=== PATIENT | female | born 1995 | race Caucasian/White ===

== ENCOUNTER 2017-09-13 16:55 | Emergency (ER) | payer OTHER ==
[~2017-09-13] VITALS: Ht 157.5 cm; Wt 72.7 kg
[~2017-09-13 16:55] MED LIST: BIO-TN500 MCG PO; CELEXA10 MG PO; CIPRO 500MG TA500 MG PO; DEPO-PROVER150 MG/M1 IM; EC NAPROSYN500 MG PO; EPA1000 MG PO; FLEXERIL5 MG PO; FLOMAX 0.40.4 MG/CAP PO; MOTRIN 600600 MG/TAB PO; MULTI VITAMINS1 TAB; NO HOME MEDICATIONS; NORCO 325 MG-51 TAB PO; NORCO 325 MG-7.1 TAB PO; PERCOCET 325 MG1 TA2 PO; PROMETHAZINE12.5 M5 PO; REGLAN 10MG10 MG/TAB PO; ZOFRAN 4MG T4 MG/TAB PO; ZOFRAN ODT8 MG PO
[2017-09-13 16:58] VITALS: TEMP 98.1
[2017-09-13 17:24] LABS: COLLECTION METHOD CLEAN CATCH
[2017-09-13 17:30] LABS: MUCOUS Present /lpf; PH 7 (5-8); URINE APPEARANCE Clear; URINE BACTERIA None Seen /hpf; URINE BILIRUBIN Negative (NEGATIVE); URINE BLOOD Negative (NEGATIVE); URINE COLOR Yellow; URINE GLUCOSE Negative (NEGATIVE); URINE KETONE Negative (NEGATIVE); URINE LEUKOCYTE ESTERASE Negative (NEGATIVE); URINE PROTEIN(semi-quant) Negative (NEGATIVE); URINE RBC 0-2 /hpf; URINE UROBILINOGEN Negative (NEGATIVE); URINE WBC 0-2 /hpf
[2017-09-13 17:45] VITALS: BP 121/75; PULSE 85
== END 2017-09-13 17:45 | disposition home or self-care (01) ==
LOC: COL.ER 16:55
PROVIDERS: Physician Assistant
DX: O26.891 Other specified pregnancy related conditions, first trimester (principal); N89.8 Other specified noninflammatory disorders of vagina; R10.2 Pelvic and perineal pain; Z3A.01 Less than 8 weeks gestation of pregnancy; Z87.442 Personal history of urinary calculi

== ENCOUNTER 2017-11-29 19:14 | Emergency (ER) | payer OTHER ==
[~2017-11-29] VITALS: Ht 157.5 cm; Wt 76.4 kg
[2017-11-29 19:29] VITALS: BP 105/64; PULSE 91; TEMP 98.2
[2017-11-29] MEDS ORDERED: PRENATAL MVI (19:31)
[2017-11-29] MEDS ORDERED: PRILOTC (19:32)
[2017-11-29 20:56] LABS: COLLECTION METHOD CLEAN CATCH
[2017-11-29 21:02] LABS: AMORPHOUS CRYSTAL Present /uL; PH 7 (5-8); URINE APPEARANCE Hazy; URINE BACTERIA Rare /hpf; URINE BILIRUBIN Negative (NEGATIVE); URINE BLOOD Negative (NEGATIVE); URINE COLOR Straw; URINE GLUCOSE Negative (NEGATIVE); URINE KETONE Negative (NEGATIVE); URINE LEUKOCYTE ESTERASE Trace (NEGATIVE); URINE NITRATE Negative (NEGATIVE); URINE PROTEIN(semi-quant) Negative (NEGATIVE); URINE RBC 0-2 /hpf; URINE UROBILINOGEN Negative (NEGATIVE)
[2017-11-29] MEDS ORDERED: MACROBID 1100 MG/CAP PO (21:09)
== END 2017-11-29 21:51 | disposition home or self-care (01) ==
LOC: COL.ER 19:14
PROVIDERS: Physician Assistant
DX: O9A.212 Injury, poisoning and certain other consequences of external causes complicating pregnancy, second trimester (principal); S39.012A Strain of muscle, fascia and tendon of lower back, initial encounter; Z3A.16 16 weeks gestation of pregnancy; Y04.0XXA Assault by unarmed brawl or fight, initial encounter; Y04.2XXA Assault by strike against or bumped into by another person, initial encounter

== ENCOUNTER → 2018-03-05 | Outpatient (CLI) | payer OTHER ==
[~2018-03-05] MED LIST changes: +MACROBID 1100 MG/CAP PO; +PRENATAL MVI; +PRILOTC
== END ==
LOC: SUN.DIA 13:20
DX: O24.419 Gestational diabetes mellitus in pregnancy, unspecified control (principal); Z3A.31 31 weeks gestation of pregnancy; Z71.3 Dietary counseling and surveillance
CPT/HCPCS: G0108

== ENCOUNTER → 2018-03-19 | Outpatient (CLI) | payer OTHER | LOC: SUN.DIA 10:09 | DX: O24.419 Gestational diabetes mellitus in pregnancy, unspecified control (principal); Z3A.33 33 weeks gestation of pregnancy; Z71.3 Dietary counseling and surveillance | CPT/HCPCS: G0108 ==

== ENCOUNTER → 2018-03-29 | Outpatient (CLI) | payer OTHER | LOC: SUN.DIA 12:59 | DX: O24.419 Gestational diabetes mellitus in pregnancy, unspecified control (principal); Z3A.34 34 weeks gestation of pregnancy; Z71.3 Dietary counseling and surveillance | CPT/HCPCS: G0108 ==

== ENCOUNTER → 2018-04-17 | Outpatient (CLI) | payer OTHER | LOC: SUN.DIA 14:31 | DX: O24.419 Gestational diabetes mellitus in pregnancy, unspecified control (principal); Z3A.37 37 weeks gestation of pregnancy; Z71.3 Dietary counseling and surveillance | CPT/HCPCS: G0108 ==

== ENCOUNTER 2018-05-03 09:32 | Inpatient (IN) | payer OTHER ==
[~2018-05-03] VITALS: Ht 157.5 cm; Wt 85.9 kg
[2018-05-05] VITALS (9 sets, daily range): BP systolic 101–115; BP diastolic 54–67; PULSE 73–99; TEMP 98.4–98.5
[2018-05-05 20:47] LABS: BASO % 0.2 % (0.0-2.0); EOS % 0.2 % (0-4.0); GRAN # 7.8 (1.4-6.5); LYMPH # 2.4 (1.2-3.4); MEAN CELL VOLUME 86 fl (80.0-100.0); MEAN CORPUSCULAR HEMOGLOBIN 28 pg (27.0-31.0); MEAN CORPUSCULAR HGB CONC 32 g/dl (33.0-37.0); MEAN PLATELET VOLUME 10.7 fl (7.4-10.4); MONO # 0.7 (0.1-0.6); PLATELET COUNT 235 K/mm3 (130-400); RED BLOOD COUNT 3.99 M/mm3 (4.10-5.30); REDCELL DISTRIBUTION WIDTH-CV 14.2 % (11.5-14.5)
[2018-05-05 20:50] LABS: HEMATOCRIT 34.2 % (37.0-47.0)
[2018-05-06] VITALS (71 sets, daily range): BP systolic 90–127; BP diastolic 43–81; PULSE 63–102; TEMP 97.9–98.6
[2018-05-06] MEDS ORDERED: PERCOCET 325 MG1 TA2 PO (17:47)
[2018-05-06] MEDS ORDERED: MOTRIN 800800 MG/TAB PO (17:47)
[2018-05-07 03:30] VITALS: BP 106/53; PULSE 76; TEMP 98.4
[2018-05-07 06:45] VITALS: BP 98/54; PULSE 77; TEMP 98.9
[2018-05-07 07:02] LABS: HEMATOCRIT 29.2 % (37.0-47.0); HEMOGLOBIN 9.1 g/dl (12.5-16.0)
[2018-05-07 12:30] VITALS: BP 99/44; PULSE 76; TEMP 97.8
[2018-05-07 19:15] VITALS: BP 97/54; PULSE 78; TEMP 97.9
[2018-05-08 07:34] VITALS: BP 97/55; PULSE 75; TEMP 97.5
[2018-05-08 16:37] VITALS: BP 96/42; PULSE 76; TEMP 97.8
[2018-05-08 21:00] VITALS: BP 112/53; PULSE 74; TEMP 98.9
[2018-05-09 06:40] VITALS: BP 102/55; PULSE 72; TEMP 97.8
== END 2018-05-09 13:20 | disposition home or self-care (01) | DRG 766 ==
LOC: LDR 09:32 → OB 05-05 19:03 → LDR 05-05 19:04 → OB 05-06 20:30
PROVIDERS: Obstetrics & Gynecology
PROC: 3E0P7VZ Introduction of Hormone into Female Reproductive, Via Natural or Artificial Opening (ICD-10-PCS; 2018-05-05)
PROC: 3E033VJ Introduction of Other Hormone into Peripheral Vein, Percutaneous Approach (ICD-10-PCS; 2018-05-05)
PROC: 10D00Z1 Extraction of Products of Conception, Low, Open Approach (ICD-10-PCS; principal; 2018-05-06)
DX: O76 Abnormality in fetal heart rate and rhythm complicating labor and delivery (principal); O24.420 Gestational diabetes mellitus in childbirth, diet controlled; Z3A.39 39 weeks gestation of pregnancy; Z37.0 Single live birth; O99.02 Anemia complicating childbirth
CPT/HCPCS: J0690; J1885; J2175; J2370; J2400; J2405; J2590; J2795; J3010; J7120

== ENCOUNTER 2018-07-17 11:26 | Emergency (ER) | payer OTHER ==
[~2018-07-17] VITALS: Ht 157.5 cm; Wt 77.3 kg
[~2018-07-17 11:26] MED LIST changes: +MOTRIN 800800 MG/TAB PO
[2018-07-17 11:31] VITALS: BP 138/81; TEMP 98.5
[2018-07-17 12:15] LABS: BASO % 0.3 % (0.0-2.0); EOS % 0.4 % (0-4.0); GRAN # 6.1 (1.4-6.5); GRAN % 68.3 % (42.2-75.2); HEMATOCRIT 38.6 % (37.0-47.0); HEMOGLOBIN 12.5 g/dl (12.5-16.0); LYMPH # 2.1 (1.2-3.4); LYMPH % 23.6 % (20.0-51.0); MEAN CELL VOLUME 82 fl (80.0-100.0); MEAN CORPUSCULAR HEMOGLOBIN 27 pg (27.0-31.0); MEAN CORPUSCULAR HGB CONC 32 g/dl (33.0-37.0); MEAN PLATELET VOLUME 9.9 fl (7.4-10.4); MONO # 0.6 (0.1-0.6); PLATELET COUNT 286 K/mm3 (130-400); REDCELL DISTRIBUTION WIDTH-CV 13.1 % (11.5-14.5)
[2018-07-17 12:30] LABS: ALBUMIN 4.4 gm/dL (3.5-5.0); BILIRUBIN,TOTAL 0.5 mg/dL (0.0-1.0); C-REACTIVE PROTEIN 0.9 mg/dL (0.0-0.9); CALCIUM 9.1 mg/dL (8.4-10.2); CREATININE, serum 0.86 mg/dL (0.52-1.25); TOTAL PROTEIN 7.7 gm/dL (6.4-8.2)
[2018-07-17 12:38] LABS: COLLECTION METHOD CATHETER
[2018-07-17 12:53] LABS: MUCOUS Present /lpf; PH 5 (5-8); SQUAMOUS EPITHELIAL 0-2 /hpf; URINE APPEARANCE Clear; URINE BACTERIA None Seen /hpf; URINE BILIRUBIN Negative (NEGATIVE); URINE BLOOD 3+ (NEGATIVE); URINE COLOR Yellow; URINE GLUCOSE Negative (NEGATIVE); URINE KETONE Negative (NEGATIVE); URINE LEUKOCYTE ESTERASE Negative (NEGATIVE); URINE NITRATE Negative (NEGATIVE); URINE PROTEIN(semi-quant) 1+ (NEGATIVE); URINE RBC >50 /hpf; URINE UROBILINOGEN Negative (NEGATIVE)
[2018-07-17] MEDS ORDERED: ZOFRAN ODT4 MG PO (13:42)
[2018-07-17] MEDS ORDERED: NORCO 325 MG-51 TAB PO (13:42)
[2018-07-17] MEDS ORDERED: IBU800 M1 PO (13:42)
[2018-07-17 14:05] VITALS: PULSE 70
== END 2018-07-17 14:02 | disposition home or self-care (01) ==
LOC: COL.ER 11:26
PROVIDERS: Physician Assistant
DX: R10.31 Right lower quadrant pain (principal); Z87.442 Personal history of urinary calculi
CPT/HCPCS: J1170; J1885; J2405; J7030

== ENCOUNTER → 2019-04-21 | Outpatient (CLI) | payer OTHER ==
[~2019-04-21] MED LIST changes: +IBU800 M1 PO; +ZOFRAN ODT4 MG PO
== END ==
LOC: COL.RAD 10:10
DX: S73.191A Other sprain of right hip, initial encounter (principal)
CPT/HCPCS: A9585; Q9967

== ENCOUNTER → 2019-10-17 | Outpatient (CLI) | payer OTHER | LOC: COL.RAD 14:00 | DX: M25.551 Pain in right hip (principal) | CPT/HCPCS: J3301; Q9967 ==

== ENCOUNTER 2021-05-01 21:08 | Emergency (ER) | payer OTHER ==
[~2021-05-01] VITALS: Ht 157.5 cm; Wt 72.7 kg
[2021-05-01 21:12] VITALS: TEMP 97.2
[2021-05-01] MEDS ORDERED: CEPHALEXIN500 M1 PO (21:34)
[2021-05-01 21:44] VITALS: BP 112/70; PULSE 67
[2021-09-15] MEDS ORDERED: ULTRAM 50MG TAB50 MG PO (08:45)
== END 2021-05-01 21:44 | disposition home or self-care (01) ==
LOC: COL.ER 21:08
DX: I88.9 Nonspecific lymphadenitis, unspecified (principal)
CPT/HCPCS: J0696; J1100

== ENCOUNTER 2021-09-11 02:21 | Inpatient (IN) | payer OTHER ==
[2021-09-11] VITALS (11 sets, daily range): BP systolic 92–107; BP diastolic 56–68; PULSE 91–116; TEMP 97.8–99.8
[~2021-09-11] VITALS: Ht 157.5 cm; Wt 75.6 kg
[~2021-09-11 02:21] MED LIST changes: +CEPHALEXIN500 M1 PO
[2021-09-11 03:02] LABS: COLLECTION METHOD CLEAN CATCH
[2021-09-11 03:03] LABS: HEMOGLOBIN 11.5 g/dl (12.5-16.0); MEAN CELL VOLUME 84 fl (80.0-100.0); MEAN CORPUSCULAR HEMOGLOBIN 27 pg (27.0-31.0); MEAN CORPUSCULAR HGB CONC 32 g/dl (33.0-37.0); MEAN PLATELET VOLUME 9.9 fl (7.4-10.4); PLATELET COUNT 229 K/mm3 (130-400); RED BLOOD COUNT 4.22 M/mm3 (4.10-5.30); REDCELL DISTRIBUTION WIDTH-CV 13.4 % (11.5-14.5)
[2021-09-11 03:11] LABS: PH 7 (5-8); URINE APPEARANCE Cloudy; URINE BACTERIA Many /hpf; URINE BILIRUBIN Negative (NEGATIVE); URINE BLOOD 2+ (NEGATIVE); URINE COLOR Yellow; URINE GLUCOSE Negative (NEGATIVE); URINE KETONE 1+ (NEGATIVE); URINE LEUKOCYTE ESTERASE 3+ (NEGATIVE); URINE NITRATE Negative (NEGATIVE); URINE PROTEIN(semi-quant) 2+ (NEGATIVE); URINE RBC >50 /hpf; URINE UROBILINOGEN >=4.0 mg/dL (NEGATIVE)
[2021-09-11 03:13] LABS: HEMATOCRIT 35.6 % (37.0-47.0)
[2021-09-11 03:21] LABS: ALBUMIN 3.5 gm/dL (3.5-5.0); BILIRUBIN,TOTAL 0.9 mg/dL (0.2-1.2); CALCIUM 9.5 mg/dL (8.4-10.2); CREATININE, serum 0.97 mg/dL (0.57-1.11); POTASSIUM 3.6 mmol/L (3.5-4.5); TOTAL PROTEIN 7.7 gm/dL (6.2-8.1)
[2021-09-11 03:34] LABS: BAND 3 % (0-10); LYMPHOCYTE 3 % (20.0-51.0); NEUTROPHILS 89 % (42.0-75.2); PLATELET ESTIMATE NORMAL (NORMAL)
--- NOTE | 2021-09-11 06:13 | NUR ---
Patient admitted to room 351 from ER at 05:25 am. Patient alert and oriented. Patient reports pain 4/10 to her left lower abd area. Patient states she just received pain med from ER and feeling a little better right now and denies need for pain med. Patient denies N/V. Patient reports having headache for about 3 days still having some headache. Patient denies chest pain or SOB. IVF infusing per MAR. All scheduled meds given per MAR. Oriented patient to the room. Admission paperwork completed. Per patient, she doesn't take any medications at home. Call light in reach. Will continue to monitor.
--- NOTE | 2021-09-11 09:27 | NUR ---
pt c/o pain 04/07, educated on taking pain medication before pain gets too high to keep pain manageable. pt requested morphine for more immediate relief, tylenol given as well for better pain management over time. pt pleasant, aox4, wears glasses, IV dettached for shower.
--- NOTE | 2021-09-11 10:22 | NUR ---
ASSESSMENT COMPLETE. PT COOPERATIVE WITH CARES. PT SHOWERED INDEPENDENTLY. DR. BAL CAME IN TO SPEAK WITH PT ABOUT HER PLAN OF CARE. DR. BAL CONSULTED DR. LANDEROS FOR SURGERY. PT STATED SHE HAD SOME FLANK PAIN. PAIN MEDICATION GIVEN. PT DENIES PALPITATIONS OR DIZZINESS. PT STATED SHE HAS NO OTHER NEEDS AT THIS TIME AND THAT SHE WANTED TO GO BACK TO SLEEP. PT RESTING IN BED. CALL LIGHT WITHIN REACH.
[2021-09-11] MEDS ORDERED: IMITREX50 MG PO (10:55)
--- NOTE | 2021-09-11 10:59 | NUR ---
PT C/O MIGRAINE, REPORTS THAT BENADRYL AND "SOME OTHER MED" HELPED LAST NIGHT. DR. BAL CALLED AND WILL REORDER MIGRAINE COCKTAIL. CONSENT OBTAINED FOR CYSTOSCOPY LATER TODAY, EDUCATED ON NEED TO STRAIN URINE, HAT PLACED IN TOILET AND STRAINER IN BATHROOM FOR USE.
--- NOTE | 2021-09-11 11:48 | NUR ---
CALLED DR. BAL ABOUT M[facility]RAINE MEDICATION, [facility]
--- NOTE | 2021-09-11 13:04 | NUR ---
Sw met with the pt who stated her preference to return home once medically stable. The pt lives at home with child (son) and is independent on all ADLS and does not use any DME. The pt is in the [employer] and does not use [employer]. Her PCP is Dr. Stevens at [facility] and gets her medications from [facility]. Her NK is her mother, Steven [phone]. Pt was not interested in [facility] at this time. No other needs stated at this time. Sw to await further recommendations and follow up as needed. D/c: home
--- NOTE | 2021-09-11 15:20 | NUR ---
PT TO OR ACCOMPANIED BY OR NURSE.
--- NOTE | 2021-09-11 17:00 | NUR ---
PT RETURNS TO UNIT FROM OR ACCOMPANIED BY CORNELIUS GAR.
--- NOTE | 2021-09-11 18:00 | NUR ---
PT SPENT MOST OF THE MORNING IN BED, AFTER TAKING A SHOWER. PT STATED SHE WAS TIRED. DR. BAL AND DR. LANDEROS SPOKE TO PT ABOUT NEEDING UROLORY SURGERY FOR PYELONEPHRITIS. PT WAS TAKEN TO SURGERY AND THEN RETURNED TO UNIT AT 1700HRS. PT RESTING IN BED, WITH HER MOTHER BY HER SIDE. PT STATES SHE HAS SOME DISCOMFORT, BUT DOESN'T NEED ANYTHING AT THIS TIME FOR PAIN. PT DENIES PALPITATIONS OR DIZZINESS. PT STATES SHE HAS NO OTHER NEEDS AT THIS TIME. CALL LIGHT IS WITHIN REACH.
--- NOTE | 2021-09-11 19:15 | NUR ---
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
--- NOTE | 2021-09-11 20:30 | NUR ---
C/o pain to left flank. Rating pain 6/10 on pain scale-described as constant throbbing-norco given per dr order. Has tolerated some PO but urine output is low. Was INTd when this shift started. Will restart IV fluids. Urine noted to be bloody with small clots. Encouraged to increase PO intake. Verbalizes understanding. Will monitor.
--- NOTE | 2021-09-11 22:00 | NUR ---
Up to shower at this time. IV fluids stopped and site wrapped.
[2021-09-12] VITALS (7 sets, daily range): BP systolic 95–112; BP diastolic 52–77; PULSE 55–81; TEMP 97.6–98.7
--- NOTE | 2021-09-12 04:05 | NUR ---
Called with c/o pain to left flank-rating pain 6/10 on pain scale-described as throbbing. Eden given per dr order. Encouraged to increase PO intake. Verbalizes understanding. IV fluids still infusing to left AC-NS@75ml/hr. Call light in reach. Will monitor.
--- NOTE | 2021-09-12 05:37 | NUR ---
Rested off and on this shift. Received norco x2 for left flank/abdominal pain. IV fluids continue to infuse-NS@75ml/hr to left AC without difficulty. Urine is less bloody this AM and output has increased. Encouraged to increase PO intake. VS remain stable. Denies current needs. Call light in reach. Will monitor.
[2021-09-12 06:31] LABS: BASO % 0.1 % (0.0-2.0); GRAN # 14.1 K/mm3 (1.4-6.5); GRAN % 89.3 % (42.2-75.2); LYMPH # 0.9 K/mm3 (1.2-3.4); LYMPH % 5.4 % (20.0-51.0); MEAN CELL VOLUME 86 fl (80.0-100.0); MEAN CORPUSCULAR HGB CONC 32 g/dl (33.0-37.0); MONO # 0.7 K/mm3 (0.1-0.6); MONO % 4.6 % (1.7-9.3); PLATELET COUNT 178 K/mm3 (130-400); RED BLOOD COUNT 3.36 M/mm3 (4.10-5.30); REDCELL DISTRIBUTION WIDTH-CV 13.7 % (11.5-14.5)
[2021-09-12 06:32] LABS: HEMOGLOBIN 9.3 g/dl (12.5-16.0); MEAN CORPUSCULAR HEMOGLOBIN 28 pg (27.0-31.0)
[2021-09-12 06:54] LABS: ALBUMIN 2.6 gm/dL (3.5-5.0); CALCIUM 8.6 mg/dL (8.4-10.2); CREATININE, serum 0.69 mg/dL (0.57-1.11); MAGNESIUM 1.8 mg/dL (1.6-2.6); PHOSPHOROUS 2.6 mg/dL (2.3-4.7); POTASSIUM 4.2 mmol/L (3.5-4.5)
--- NOTE | 2021-09-12 07:44 | NUR ---
NOTIFIED ZACH GU OF PT REPORTING ITCHINESS AND REQUESTING BENADRYL.
--- NOTE | 2021-09-12 09:53 | NUR ---
PT ALERT AND ORIENTED. PT REPORTING MILD LEFT FLANK PAIN, 4/10. 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 BENADRYL GIVEN PER ORDERS. PT HAS CLEAR LUNGS TO AUSCULTATION. S1,S2 SOUNDS AUSCULTATED. PT REPORTS DIZZINESS WITH BENDING AND ONSET OF HEADACHES IF BENDING OVER. PT IV FLUIDS CURRENTLY RUNNING. PT CALL LIGHT WITHIN REACH, NO OTHER NEEDS AT THIS TIME.
--- NOTE | 2021-09-12 13:21 | NUR ---
PT CALLED OUT STATING FLANK PAIN INCREASING TO 6-7/10. PRN MEDICATIONS GIVEN PER ORDERS.
--- NOTE | 2021-09-12 14:26 | NUR ---
NOTIFIED ZACH GU OF PT REPORTING SOA, SPO2 100%. LUNG SOUNDS REASSESSED, CLEAR TO AUSCULTATION. PT ALSO REPORTING INCREASED PAIN FLANK, RADIATING ACROSS ABDOMEN.
--- NOTE | 2021-09-12 14:27 | NUR ---
Initial visit; Patient thanked Zigzag Appliquer for looking in on her and offering God's blessings and to keep her in Zigzag Appliquer's prayers.
--- NOTE | 2021-09-12 14:48 | NUR ---
PT SCDS SET UP, PT STATES GETTING UP AND WALKING AROUND IN ROOM FREQUENTLY. EDUCATION PROVIDED ON REASON FOR SCDS, HOW TO PUT THEM ON AND START MACHINE. PT VERBALIZES UNDERSTANDING.
--- NOTE | 2021-09-12 16:03 | NUR ---
PT STATES FLANK PAIN RESOLVED, ADBOMINAL PAIN INCREASED. STATES UPPER MID ABDOMEN PAIN WITH PALPATION. PT STATES ABDOMEN FEELING FIRM WHEN STANDING, SOFT WHEN SUPINE.
--- NOTE | 2021-09-12 18:56 | NUR ---
pt urine bloody, red in hat
--- NOTE | 2021-09-12 18:56 | NUR ---
pt refusing hospital meal, states mother is bringing food in
--- NOTE | 2021-09-12 19:02 | NUR ---
pt continuing on plan of care. Pt voiding independently, able to ambulate in room. Pt complaining of pain flank and abdominal throughout shift. PRN medications given per orders. Partial relief, but pt states upper mid abdomen still operator whiskey to touch. Pt vital signs stable, blood pressure increased after fluid bolus per orders. Pt able to call for needs.
--- NOTE | 2021-09-12 20:00 | NUR ---
Assessment complete. Patient alert and oriented with complaints of mid-abdominal pain; PRN toradol and tylenol administered. Fluids infusing. Pt requests a shower and is provided with supplies to do so. Education provided on blood work results. No new concerns at this time, will continue to monitor.
[2021-09-13 04:12] VITALS: BP 109/71; PULSE 75; TEMP 97.8
[2021-09-13 07:07] LABS: BASO % 0.1 % (0.0-2.0); EOS % 0.1 % (0-4.0); GRAN % 70.8 % (42.2-75.2); LYMPH # 2.7 K/mm3 (1.2-3.4); LYMPH % 21.4 % (20.0-51.0); MEAN CELL VOLUME 86 fl (80.0-100.0); MEAN CORPUSCULAR HGB CONC 31 g/dl (33.0-37.0); MEAN PLATELET VOLUME 11.3 fl (7.4-10.4); MONO # 0.9 K/mm3 (0.1-0.6); MONO % 7.2 % (1.7-9.3); PLATELET COUNT 200 K/mm3 (130-400); RED BLOOD COUNT 3.22 M/mm3 (4.10-5.30); REDCELL DISTRIBUTION WIDTH-CV 13.8 % (11.5-14.5)
[2021-09-13 07:10] LABS: HEMATOCRIT 27.7 % (37.0-47.0); HEMOGLOBIN 8.7 g/dl (12.5-16.0); MEAN CORPUSCULAR HEMOGLOBIN 27 pg (27.0-31.0)
[2021-09-13 07:23] LABS: CALCIUM 8.5 mg/dL (8.4-10.2); CREATININE, serum 0.72 mg/dL (0.57-1.11)
[2021-09-13 07:51] VITALS: BP 112/82; PULSE 76; TEMP 98.2
--- NOTE | 2021-09-13 09:01 | NUR ---
NOTIFIED ZACH GU OF PT UNMANAGED PAIN, 08/07.
[2021-09-13 12:12] VITALS: BP 114/61; PULSE 91; TEMP 98.9
--- NOTE | 2021-09-13 13:01 | NUR ---
PT ALERT AND ORIENTED. PT STATES HAVING 10/10 PAIN IN ABDOMEN, SPECIFICALLY RUQ WITH PALPATION AND CENTER ABDOMEN AT TIME OF 0800 ASSESSMENT. MEDICATIONS GIVEN PER ORDERS, BRITTANIE NOTIFIED. PT HAS CLEAR LUNGS TO AUSCULTATION. PT HAS 2+ PULSES IN ALL EXTREMITIES. PT HAS BILATERAL LOWER EXTREMITY EDEMA, NON-PITTING.
[2021-09-13 15:55] VITALS: BP 103/65; PULSE 72; TEMP 98.8
--- NOTE | 2021-09-13 16:51 | NUR ---
Pt continuing on plan of care. Pt pain managed with medications per orders, full mananagement not met this shift. Pt pain went from 10/10 this AM to 5/10 during 1600 assessment. Pt able to ambulate independently. No significant changes in patient status this shift.
[2021-09-13 19:58] VITALS: BP 108/63; PULSE 99; TEMP 98.8
--- NOTE | 2021-09-13 20:00 | NUR ---
Assessment complete. Patient has no complaints of pain or nausea at this time. She expresses interest in wanting to discharge tonight. ZACH Alfonso notified, who has conversation with Dr. Husain. Lisha prefers patient to stay overnight to monitor pain/nausea. Patient is compliant with this plan but wishes to leave as soon as possible in AM. Patient and family educated on plan. Call light in reach.
[2021-09-14] MEDS ORDERED: LEVSIN0.125 M1 SL (01:50)
[2021-09-14] MEDS ORDERED: FLOMAX 0.40.4 MG/CAP PO (01:51)
[2021-09-14] MEDS ORDERED: AMBIEN 5MG TABLE5 MG PO (01:51)
[2021-09-14] MEDS ORDERED: PROTONIX 40MG T40 MG PO (01:53)
[2021-09-14] MEDS ORDERED: ZOFRAN 4MG T4 MG/TAB PO (01:53)
[2021-09-14] MEDS ORDERED: BACTRIM DS 8001 TAB PO (01:53)
[2021-09-14] MEDS ORDERED: ULTRAM 50MG TAB50 MG PO (02:19)
[2021-09-14 04:55] VITALS: BP 116/68; PULSE 102; TEMP 99.7
[2021-09-14 07:03] LABS: BASO % 0.1 % (0.0-2.0); EOS % 0.4 % (0-4.0); GRAN # 4.7 K/mm3 (1.4-6.5); LYMPH # 2.4 K/mm3 (1.2-3.4); LYMPH % 30.3 % (20.0-51.0); MEAN CELL VOLUME 85 fl (80.0-100.0); MEAN CORPUSCULAR HGB CONC 32 g/dl (33.0-37.0); MEAN PLATELET VOLUME 10.7 fl (7.4-10.4); MONO # 0.9 K/mm3 (0.1-0.6); PLATELET COUNT 211 K/mm3 (130-400); RED BLOOD COUNT 3.14 M/mm3 (4.10-5.30); REDCELL DISTRIBUTION WIDTH-CV 13.9 % (11.5-14.5)
[2021-09-14 07:06] LABS: HEMATOCRIT 26.7 % (37.0-47.0); HEMOGLOBIN 8.6 g/dl (12.5-16.0); MEAN CORPUSCULAR HEMOGLOBIN 27 pg (27.0-31.0)
[2021-09-14 07:12] LABS: CALCIUM 8.6 mg/dL (8.4-10.2); CREATININE, serum 0.67 mg/dL (0.57-1.11); POTASSIUM 3.6 mmol/L (3.5-4.5)
[2021-09-14 07:20] VITALS: BP 116/78; PULSE 96; TEMP 98.2
--- NOTE | 2021-09-14 09:40 | NUR ---
Patient will be discharging shortly. Patient's only complaint is of a migraine starting. Patient given PRN sumatriptan and tylenol.
--- NOTE | 2021-09-14 09:59 | NUR ---
Patient discharged and escorted out by this RN
[2021-09-15] MEDS ORDERED: ULTRAM 50MG TAB50 MG PO (08:45)
== END 2021-09-14 09:50 | disposition home or self-care (01) | DRG 854 ==
LOC: COL.ER 02:21 → MEDICAL 04:48
PROVIDERS: Emergency Medicine; Physician Assistant; Urology; ADMIT Internal Medicine
PROC: 0T778DZ Dilation of Left Ureter with Intraluminal Device, Via Natural or Artificial Opening Endoscopic (ICD-10-PCS; principal; 2021-09-11 15:30)
PROC: 0TC78ZZ Extirpation of Matter from Left Ureter, Via Natural or Artificial Opening Endoscopic (ICD-10-PCS; 2021-09-11 15:30)
PROC: BT1F1ZZ Fluoroscopy of Left Kidney, Ureter and Bladder using Low Osmolar Contrast (ICD-10-PCS; 2021-09-11 15:30)
DX: A41.9 Sepsis, unspecified organism (principal); N20.1 Calculus of ureter; G43.909 Migraine, unspecified, not intractable, without status migrainosus; R73.9 Hyperglycemia, unspecified; D64.9 Anemia, unspecified; B96.20 Unspecified Escherichia coli [E. coli] as the cause of diseases classified elsewhere; Z87.442 Personal history of urinary calculi; Z23 Encounter for immunization
CPT/HCPCS: OP; 99223-AI; 99232-AI; 99233-AI; 99239; C1769; C2617; C9113; J0690; J0696; J1100; J1200; J1650; J1885; J2270; J2405; J2704; J2765; J3010; J7030; J7120; Q9967